=== PATIENT | female | born 1935 | race Caucasian/White ===

== ENCOUNTER 2022-02-04 10:24 | Outpatient (CLI) | payer MEDICARE | END 2022-02-04 10:25 | disposition home or self-care (01) | LOC: CSHLAB 10:24 | PROVIDERS: ATTEND Internal Medicine Cardiovascular Disease | DX: Z20.822 Contact with and (suspected) exposure to COVID-19 (principal) | CPT/HCPCS: 87811 ==

== ENCOUNTER 2022-02-08 15:35 | Outpatient (CLI) | payer MEDICARE | END 2022-02-08 15:36 | disposition home or self-care (01) | LOC: CSHCP 15:35 | PROVIDERS: ATTEND Internal Medicine Cardiovascular Disease | DX: I35.0 Nonrheumatic aortic (valve) stenosis (principal); R94.2 Abnormal results of pulmonary function studies | CPT/HCPCS: 94060; 94726; 94729; 94760 ==